=== PATIENT | male | born 1980 | race Caucasian/White ===

== ENCOUNTER 2024-07-17 12:19 | Emergency (ER) | payer OTHER, SELFPAY ==
[2024-07-17] VITALS (11 sets, daily range): BP systolic 85–129; BP diastolic 57–78; PULSE 78–96; RESP 12–30; TEMP 37.2; O2SAT 97–100
--- NOTE | ~2024-07-17 | CT_ITS ---
Non-contrast Head CT History: Syncope Technique: Axial non-contrast imaging of the brain was performed. Dose reduction technique was used on this scan by utilizing automated exposure control and iterative reconstruction technique. The dose -length product (DLP) was 681.00 mGy-cm. Findings: There is no evidence of intracranial hemorrhage, mass lesion, or acute infarct. Brain par enchyma appears normal. The ventricles and subarachnoid spaces are normal in size. The calvarium ap pears normal. The visualized paranasal sinuses and mastoid air cells are clear. Impression: No significant abnormality seen. Reviewed, dictated and finalized at location . Impression: No significant abnormality seen.
--- NOTE | ~2024-07-17 | XR_ITS ---
EXAMINATION: XR chest 2V 07/17/2024 13:48 INDICATION: Syncope PROCEDURE: 2 view chest COMPARISON: No prior studies for comparison. FINDINGS: The lungs are clear. The cardiomediastinal silhouette is within normal limits. There are no pleural effusions. There is no pneumothorax suspected. IMPRESSION: 1: NO ACUTE CARDIOPULMONARY DISEASE. Reviewed, dictated and finalized at location A.
--- NOTE | 2024-07-17 12:43 | ECG_ITS ---
Test Date: 2024-07-17 12:56:57 Measurements Intervals [place] Rate: 76 P: 10 FL: 156 QRS: -2 QRSD: 98 T: 22 QT: 354 QTc: 398 Interpretive Statements SINUS RHYTHM No previous ECG available for comparison Electronically Signed On 07-17-2024 13:44:16 CDT by Kalina Albarran M.D.
[2024-07-17 13:00] LABS: Basophils Percent Auto 0.2 % (0.2-1.2); Eosinophils Percent Auto 0.4 % (0-4.4); Hematocrit 47.2 % (42.0-52.0); Hemoglobin 17.4 g/dL (14.0-18.0); Immature Granulocyte Absolute 0.04 K/mm3 (0.00-0.031); Immature Granulocyte Percent A 0.4 % (0-0.5); Lymphocytes Absolute Auto 0.46 K/mm3 (0.9-3.2); Lymphocytes Percent Auto 4.8 % (18.3-44.2); Mean Corpuscular HGB Conc 36.9 g/dl (32-36); Mean Corpuscular Hemoglobin 33.8 pg (26-34); Mean Corpuscular Volume 91.7 fl (80-100); Monocytes Absolute Auto 0.2 K/mm3 (0.1-0.6); Monocytes Percent Auto 2.5 % (2.6-8.5); Neutrophils Absolute Auto 8.8 K/mm3 (1.3-6.7); Neutrophils Percent Auto 91.7 % (45.5-73.1); Platelet Count Result 158 k/mm3 (150-375); Red Blood Count 5.15 M/mm3 (4.6-6.20); Red Cell Distribution Width 14.4 % (11.5-14.5); White Blood Count 9.6 K/mm3 (4.5-10.0)
--- OUTSIDE RECORDS SUMMARY | 2024-07-17 13:02 | XMS_ITS | Clinical Summary ---
Author Organization [facility] Address [address] [place] [address] Phone Care Team Providers [employer] Organizer Name Role Phone Provider, None Primary Care Provider Unavailabl e Medications loratadine (CLARITIN) 10 MG Tablet Take 10 mg by mouth daily. 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); Family history of genetic disease 05/25/2024 Travel from Last 3 Months Social History Tobacco Use Types Packs/Day Years Used Date Smoking Tobacco: Never Passive Smoke Exposure: Never Smokeless Tobacco: Never Tobacco Cessation:Counseling Given: Not Answered Sex and Gender Information Value Date Recorded Sex Assigned at Not on file Legal Sex Male 4:[address] Gender Identity Not on file Sexual Orientation Not on file Last Filed Vital Signs Vital Sign Reading Time Taken Comments Blood Pressure 113/75 05/25/2024 9:07 AM CDT Pulse 66 05/25/2024 9:07 AM CDT Temperature 36.8 C (98.3 F) 05/25/2024 9:07 AM CDT Respiratory Rate - - Oxygen Saturation 97% 05/25/2024 9:0 7 AM CDT Inhaled Oxygen Concentration - - Weight 105.9 kg (233 lb 7.5 oz) 05/25/2024 9:07 AM CDT Height 178.3 cm (5' 10.2 ) 05/25/2024 9 :07 AM CDT 178.3cm height w/shoes Body Mass Index 33.31 05/25/2024 9:07 AM CDT Plan of Treatment Health Maintenance Due Date Last Done Comments Hepatitis C Virus (HCV) Screening 1980 TdaP Immunization 1980 Hepatitis B Immunization (1 of 3 - 19+ 3-dose series) 1999 Influenza Immunization (#1) 2023 02/21/2018 SARS-COV-2 Immunization (2023- season) 2023 07/06/2020, 06/03/2020 Respiratory Syncytial Virus (RSV) Immunization (Adult) (1 - 1-dose 75+ series) 2055 DTaP/Tdap/Td Immunization Discontinued 2016, 07/01/2002 Meningococcal Immunization (ACWY) Aged Out No longer eligible based on patient's age to complete this topic Pneumococcal Immunization Combined Aged Out No longer eligible based on patient's age to complete this topic Rotavirus Immunization Aged Out No lo nger eligible based on patient's age to complete this topic Insurance MEDICAID [employer] [facility] Care Teams International Organizer Relationship Specialty Start Date End Date Provider, None ZHANE PCP - General 11/16/21
[2024-07-17 13:09] LABS: Alanine Aminotransferase 32 U/L (6-50); Alkaline Phosphatase 102 U/L (38-126); Anion Gap 10 mmol/L (4-12); Aspartate Amino Transferase 32 U/L (17-59); Bilirubin,Total 0.9 mg/dL (0.2-1.3); Blood Urea Nitrogen 14 mg/dL (9-20); Carbon Dioxide 25 mmol/L (22-30); Chloride 102 mmol/L (98-107); Estimated CRCL calculation 109 ml/min; Estimated Glomerular Filt Rate > 60; Glucose 113 mg/dL (65-110); Potassium 4.5 mmol/L (3.4-5.0); Sodium 137 mmol/L (137-145)
[2024-07-17] MEDS: LACTATED RINGERS 1,000 ML 999 ML IV CONT ×2 (13:41)
[2024-07-17] MEDS: DICYCLOMINE HCL 10 MG CAPSULE 20 MG PO (13:42)
[2024-07-17] MEDS: LOPERAMIDE HCL 2 MG CAPSULE 4 MG PO (13:43)
--- NOTE | 2024-07-17 14:12 | ED.SYNCOPE ---
HPI - Syncope General Chief Complaint: Syncope Stated Complaint: unspecified Time Seen by Provider: 07/17/24 12:45 History of Present Illness HPI narrative: 44-year-old male presenting to the emergency department for a vasovagal syncopal event. Patient states that he was having some Mediterranean food yesterday and then started having voluminous diarrhea. He felt nauseous throughout the afternoon and evening and then this morning while he was driving in the car with his family. He felt profoundly nauseous and felt like he was about to lose consciousness and had tunnel vision. His eyes rolled back of his head and he vomited several times and lost consciousness briefly. He woke up after several moments and was awake alert answering all questions according to his present at bedside. Patient did not remember fully passing out but remembers feeling nauseous to the point right before happen. No seizure-like activity, no postictal state. No head injury trauma. Patient states that he got Zofran EN route by EMS and felt significantly improved but still feels like he has the need to defecate with more diarrhea. Some family members were sick several days ago with stomach flu-like symptoms that resolved. Patient self is not any acute distress. He has had a history of vasovagal events in the past with minor events but no history of seizures. No head trauma associated with this, no vision changes, headache, vision loss, chest pain, shortness a breath, abdominal pain, back pain. No weakness or fatigue, no sensory deficits. Related Data Allergies Allergy/AdvReac Type Severity Reaction Status Date / Time No Known Allergies Allergy Verified 07/17/24 12:26 Review of Systems Review of Systems: As reviewed above in HPI Exam Narrative: GENERAL: [Well-appearing, well-nourished, and in no acute distress.] HEAD: [Normocephalic, atraumatic.] EYES: [PERRLA and EOMI.] ENT: Nares clear, no rhinorrhea or epistaxis. Mucous membranes moist. NECK: Supple. CHEST: [Clear to auscultation. No respiratory distress.] HEART: [Regular rate and rhythm]. No murmur heard. [Normal peripheral pulses.] ABDOMEN: [Soft, nondistended], [nontender], [No rigidity or guarding] EXTREMITIES: Normal range of motion. [No edema.] SKIN: Warm, dry, no rash. NEURO: [No focal deficits]. Alert and oriented [x3.] PSYCH: [Normal mood and affect.] Course Vital Signs Vital signs: Vital Signs Temperature 37.2 C 07/17/24 12:20 Pulse Rate 84 07/17/24 12:20 Respiratory Rate 16 07/17/24 12:20 Pulse Oximetry 99 07/17/24 12:20 Temperature 37.2 C 07/17/24 12:20 Pulse Rate 88 07/17/24 13:46 Respiratory Rate 19 07/17/24 13:46 Blood Pressure 106/69 07/17/24 13:46 Pulse Oximetry 97 07/17/24 13:46 MDM - Syncope MDM Narrative Medical decision making narrative: 44-year-old male presenting for his syncopal event today. Symptoms leading up to include profound sensation of nauseousness and voluminous diarrhea since yesterday. Patient states that he felt like he ate bad Mediterranean food and got a stomach bug. He had numerous episodes of watery diarrhea and vomited after he had a syncopal event in the car. Patient woke up right away after a brief syncopal events in the car with vomit and diarrhea. Denies any tongue biting, no headache, vision change, chest pain, shortness a breath, abdominal pain, back pain. Patient is concerned that he got the stomach flu or stomach bug. He is not any acute distress, awake and answering all questions appropriately with an unremarkable neurological assessment a soft nontender nondistended abdomen. He has normal vital signs. Historical features do sound like vasovagal versus orthostatic syncopal event secondary to volume losses. Low suspicion acute intracranial pathology as he has no risk factors for this and there is no associated head injury. Patient states that he has had vasovagal event in the past with minor events such. Given his age and risk factors blood work was obtained including CBC, CMP, lipase, CT of the head, EKG. He was given hydration with 2 L of fluid and symptom control medications including Bentyl and loperamide. Patient placed on call center trainer and re-evaluated frequently. Likely safe discharge home assuming unremarkable workup. Patient's workup shows no leukocytosis or anemia. Normal platelet count. Electrolytes are unremarkable. Normal renal function, normal glucose and LFTs. Chest x-ray shows no acute cardiopulmonary disease. CT of the head shows no acute abnormalities. EKG shows no ectopy and otherwise normal sinus rhythm. Patient is hemodynamically stable with re-evaluation showing symptom improvement. He can be safely discharged home at this time with antiemetics and loperamide for his diarrhea. He will be given return precautions and follow-up instructions. Medical Records Attestation: I reviewed the patient's medical records. Lab Data Attestation: I reviewed the patient's lab results. 07/17/24 12:55 07/17/24 12:55 Labs: Lab Results 07/17/24 Range/Units 12:55 WBC 9.6 (4.5-10.0) K/mm3 RBC 5.15 (4.6-6.20) M/mm3 Hgb 17.4 (14.0-18.0) g/dL Hct 47.2 (42.0-52.0) % MCV 91.7 (80-100) fl MCH 33.8 (26-34) pg MCHC 36.9 H (32-36) g/dl RDW 14.4 (11.5-14.5) % Plt Count 158 (150-375) k/mm3 MPV 10.0 (7.4-10.4) fl Immature Gran % (Auto) 0.4 (0-0.5) % Neut % (Auto) 91.7 H (45.5-73.1) % Lymph % (Auto) 4.8 L (18.3-44.2) % Benson % (Auto) 2.5 L (2.6-8.5) % Eos % (Auto) 0.4 (0-4.4) % Baso % (Auto) 0.2 (0.2-1.2) % Lymph # (Auto) 0.46 L (0.9-3.2) K/mm3 Benson # (Auto) 0.2 (0.1-0.6) K/mm3 Eos # (Auto) 0.0 (0-0.3) K/mm3 Baso # (Auto) 0.0 (0.0-0.1) K/mm3 Abs Immat Gran (auto) 0.04 H (0.00-0.031) K/mm3 Absolute Neuts (auto) 8.8 H (1.3-6.7) K/mm3 Absolute Nucleated RBC 0.000 (0.0-0.012) K/mm3 Nucleated RBC % 0.0 (0.0-0.2) % Sodium 137 (137-145) mmol/L Potassium 4.5 (3.4-5.0) mmol/L Chloride 102 (98-107) mmol/L Carbon Dioxide 25 (22-30) mmol/L Anion Gap 10 (4-12) mmol/L BUN 14 (9-20) mg/dL Creatinine 0.94 (0.7-1.3) mg/dL Estim Creat Clear Calc 109 ml/min Estimated GFR > 60 (59 - ) Glucose 113 H (65-110) mg/dL Calcium 9.0 (8.4-10.2) mg/dL Total Bilirubin 0.9 (0.2-1.3) mg/dL AST 32 (17-59) U/L ALT 32 (6-50) U/L Alkaline Phosphatase 102 (38-126) U/L Total Protein 9.0 H (6.3-8.2) g/dL Albumin 5.0 (3.5-5.1) g/dL Imaging Data Attestation: I personally reviewed and interpreted this imaging study as follows: My impression: Impressions Chest X-Ray 07/17/24 14:07 IMPRESSION: 1: NO ACUTE CARDIOPULMONARY DISEASE. Head CT 07/17/24 14:24 Impression: No significant abnormality seen. ECG Data EKG #1: Attestation: I personally reviewed and interpreted this ECG as follows: ECG completion date: 07/17/24 ECG completion time: 12:56 Prior ECG tracings: not available for review Interpretation: Sinus rhythm, QTC 398, QRS 98, NJ interval 156, rate of 76 beats per minute. No ST segment elevations, depressions or inversions. No ectopy. Overall function rotation is normal sinus rhythm. No previous EKG for comparison. Discharge Plan Discharge Clinical Impression: Vasovagal syncope, Nausea & vomiting, Diarrhea Patient Disposition: Home Condition: Stable Instructions: Antibiotic Form, Syncope (ED), Acute Nausea and Vomiting (DC), Acute Diarrhea (ED) Additional Instructions: All of your workup is reassuring with no acute abnormalities or concerning findings. No signs of dehydration, normal electrolytes, no signs of intracranial problems such as a mass, stroke or bleed. EKG is normal. Symptoms very consistent with stomach flu versus gastroenteritis leading towards a vasovagal event. We will send you home with some medications for symptom control. Follow-up with regular doctor and maintain good oral hydration with water or electrolyte replacement solutions. Eat a bland diet for the next several days until symptoms resolve. Patient Language: Barbadian Prescriptions: New dicyclomine 20 mg tablet 20 mg PO TID PRN (Reason: abdominal pain) Qty: 14 0RF ondansetron 4 mg tablet,disintegrating 4 mg PO Q8H PRN (Reason: nausea and vomiting) Qty: 10 0RF loperamide [Anti-Diarrheal (loperamide)] 2 mg capsule 2 mg PO Q6H PRN (Reason: loose stool) Qty: 14 0RF Follow-up/Referrals: UNKNOWN,DOCTOR [Primary Care Provider] - Time of Disposition: 14:48
== END 2024-07-17 15:24 | disposition home or self-care (01) ==
PROVIDERS: Emergency Provider Student in an Organized Health Care Education/Training Program
DX: R55 Syncope and collapse (principal); R11.2 Nausea with vomiting, unspecified; R19.7 Diarrhea, unspecified
CPT/HCPCS: 36415; 70450; 71046; 80053; 85025; 93005; 96360; 99284; A9270; J7120